=== PATIENT | female | born 1995 | race Caucasian/White ===

== ENCOUNTER 2023-08-09 08:59 | Outpatient (AMB) | payer OTHER, SELFPAY ==
--- NOTE | 2023-08-09 09:02 | MHC.OFFVIS ---
Intake Vital Signs 08/09/23 09:04 Height 5 ft 0.5 in Weight 99 lb 3.328 oz BMI 19.1 BP 131/76 Blood Pressure Location Lt brachial Position Sitting Pulse 74 Intake Visit Reasons: Gallbladder problems Intake Note: Chandrika presents in the office as a new patient. CC: She states that she used to have an upset stomach after greasy foods but now it is more frequent and anything will upset her stomach. She will have diarrhea 30 minutes after eating. Pains in the bottom part of her stomach. It feels like gas pains and will get worse. She states she does get acid reflux and when she was younger she had it alot. Denies any blood in her stool. Allergies blueberry Allergy (Mild, Verified 08/09/23 09:04) Unknown HPI HPI Comments History of Present Illness Details This is a 28y.o F who is here for abd cramping and diarrhea. Reports sx started almost 3 years ago and initially were associated with abd cramping and diarrhea within 1-2 hours of eating vaishali fatty/greasy food. Back then sx were intermittent but now for the past one year has been noticing more frequent sx which now occur with any food and occur within an hour of eating. Has tried to eliminate some food groups such as fatty foods, seafood. Has never tried to eliminate dairy or gluten. Was also seen by [facility] medicine and was given cholacol supplement (bovine bile salts) which she took with fatty foods unsure if its really helped but continues on it once daily. Diarrhea occurs once a month but when it does occur she has loose BMs 2-3/day. Abd cramping improves with diarrhea. She also notes its also coincides with her menstrual cycle. Of note had an US Abd through PCP office that showed 0.3cm GB polyp in the fundus but no stones or sludge. Normal CBD 0.2cm. [facility] Social History (Updated 08/09/23 @ 09:06 by [employer]) Alcohol intake: current Alcohol intake frequency: holidays/special occasions only Use of substances other than those prescribed or required for medical reasons: No Review of Systems Const All systems reviewed & are unremarkable except as noted in HPI and below Physical Exam Vital Signs: Last Vital Signs Pulse 74 08/09/23 09:04 BP 131/76 08/09/23 09:04 BMI result Body Mass Index 19.1 Gen appear: NAD HEENT: nonicteric, no cervical lymphadenopathy Chest: CTA CVS: Regular S1/S2 Abd: soft, nontender, nondistended, bowel sounds + Ext: no peripheral edema Neuro: A/Ox3, noted to move all extremities spontaneously Psych: interacting appropriately Assessment & Plan Assessment & Plan (1) Gallbladder polyp: Code(s): K82.4 - Cholesterolosis of gallbladder (2) Diarrhea: Code(s): R19.7 - Diarrhea, unspecified (3) Abdominal pain: Code(s): R10.9 - Unspecified abdominal pain Plan 1. Discussed with the pt that symptoms appear to be likely food triggered vs related to menstrual period. Reviewed that having GI sx around menses is quite common and includes abd cramping, nausea and diarrhea. IBS typically assoc with more frequent sx than just once monthly. Similarly, biliary colic does not typically coincide wiht menstrual cycle either. Plan: - Encouraged to keep a sx diary to help identify triggers better - Labs ordered to w/up for other causes such celiac, hyperthyroidism, IBD - No further work up needed if these return normal 2. GB polyp Likely unrelated to her abd complaints given the size of the polyp and sx characteristics as above. Can surveil through PCP's office with US at 1, 3, 5 years and then stop if continues to be stable. Follow PRN unless actionable findings on above. Orders: Orders Complete Blood Count no Diff Today R10.9 - Unspecified abdominal pain TSH reflex Free T4 Today R10.9 - Unspecified abdominal pain Liver Panel Today R10.9 - Unspecified abdominal pain Transglutaminase IgA Today R10.9 - Unspecified abdominal pain Immunoglobulin A Today R10.9 - Unspecified abdominal pain C Reactive Protein Today R19.7 - Diarrhea, unspecified Calprotectin, Fecal Today R19.7 - Diarrhea, unspecified Coding Level of Care Code New Pt Level 4 (63502) Diagnoses Gallbladder polyp K82.4 Diarrhea R19.7 Abdominal pain R10.9
[2023-08-09 09:04] VITALS: BP 131/76; PULSE 74; BMI 19.1
== END 2023-08-09 09:48 | disposition home or self-care (01) ==
PROVIDERS: Visit Provider Internal Medicine
DX: K82.4 Cholesterolosis of gallbladder (principal); R19.7 Diarrhea, unspecified; R10.9 Unspecified abdominal pain
CPT/HCPCS: 99204

== ENCOUNTER → 2023-08-09 08:59 | Outpatient (BNVA) | payer OTHER, SELFPAY | PROVIDERS: Visit Provider Internal Medicine ==

== ENCOUNTER 2023-08-09 10:21 | Outpatient (REF) | payer OTHER, SELFPAY ==
[2023-08-11 10:58] LABS: Immunoglobulin A 204 mg/dL (47-310)
[2023-08-11 13:09] LABS: Transglutaminase IgA <1.0 U/mL
[2023-08-17 03:59] LABS: Calprotectin, Fecal 33 mcg/g
== END 2023-08-09 10:22 | disposition home or self-care (01) ==
LOC: HO.WFDLDS 10:21
PROVIDERS: Visit Provider Internal Medicine
DX: R19.7 Diarrhea, unspecified (principal); R10.9 Unspecified abdominal pain
CPT/HCPCS: 36415; 80076; 82784; 83993; 84443; 85027; 86140; 86364

== ENCOUNTER 2024-06-17 13:43 | Outpatient (AMB) | payer OTHER, SELFPAY ==
[2024-06-17 13:47] VITALS: BP 119/68; PULSE 68; BMI 19.4
--- NOTE | 2024-06-17 13:47 | A.OFFVIS_ITS ---
Vital Signs 06/17/24 13:47 Height 5 ft Weight 99 lb 3.328 oz BMI 19.4 BP 119/68 Blood Pressure Location Lt brachial Position Sitting Pulse 68 Intake Visit Reasons: Diarrhea/ abd pain Intake Note: Chandrika presents in the office as a follow up for abdominal pains and diarrhea. CC: She is having a follow up she states that there is nothing new and everything seems better. 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 Reports sx started almost 3 years ago and initially were associated with abd cramping and diarrhea within 1-2 hours of eating vaishali fatty/greasy food. Back then sx were intermittent but now for the past one year has been noticing more frequent sx which now occur with any food and occur within an hour of eating. Has tried to eliminate some food groups such as fatty foods, seafood. Has never tried to eliminate dairy or gluten. Was also seen by [facility] medicine and was given cholacol supplement (bovine bile salts) which she took with fatty foods unsure if its really helped but continues on it once daily. Diarrhea occurs once a month but when it does occur she has loose BMs 2-3/day. Abd cramping improves with diarrhea. She also notes its also coincides with her menstrual cycle. Of note had an US Abd through PCP office that showed 0.3cm GB polyp in the fundus but no stones or sludge. Normal CBD 0.2cm. 06/17/24: Here to follow up as wasnt sure if needed a repeat US. Otherwise doing well from GI standpoint. Seeing a underground bolting machine operator whos made recommendations re dietary discretion. Has also been prescribed pancreatic enzymes (digest gold). [facility] Social History Alcohol intake: current Alcohol intake frequency: holidays/special occasions only Review of Systems Const All systems reviewed & are unremarkable except as noted in HPI and below Physical Exam Vital Signs: Last Vital Signs Pulse 68 06/17/24 13:47 BP 119/68 06/17/24 13:47 BMI result Body Mass Index 19.4 No apparent distress Nonicteric Abdomen soft, nondistended Alert and oriented x3, normal gait Assessment & Plan Assessment & Plan (1) Gallbladder polyp: Code(s): K82.4 - Cholesterolosis of gallbladder Category: Medical Plan Will cont surveillance with US at 1, 3, 5 years and then stop if continues to be stable. US ABd ordered. Orders: Orders US abdomen limited Today K82.4 - Cholesterolosis of gallbladder Coding Level of Care Code Est Pt Level 3 (13859) Diagnoses Gallbladder polyp K82.4
== END 2024-06-17 14:43 | disposition home or self-care (01) ==
PROVIDERS: PCP Internal Medicine; Visit Provider Internal Medicine
DX: K82.4 Cholesterolosis of gallbladder (principal)
CPT/HCPCS: 99213

== ENCOUNTER → 2024-06-17 13:43 | Outpatient (BNVA) | payer OTHER, SELFPAY | PROVIDERS: Visit Provider Internal Medicine ==

== ENCOUNTER 2024-07-02 08:32 | Outpatient (REF) | payer OTHER, SELFPAY ==
--- NOTE | ~2024-07-02 | US_ITS ---
EXAMINATION: US ABDOMEN LIMITED CLINICAL INFORMATION: Cholesterolosis of the gallbladder. COMPARISON: None available. TECHNIQUE: Real-time imaging of the right upper quadrant abdominal viscera. FINDINGS: PANCREAS: Normal. LIVER: Normal. The liver is normal in size. The liver contour is normal. Parenchymal echogenicity is normal. No focal hepatic lesion. There is no intrahepatic biliary duct dilatation seen. GALLBLADDER: There are 2 polypoid observations in the gallbladder wall measuring 0.2 and 0.3 cm. No significant gallbladder wall thickening. No pericholecystic free fluid. COMMON BILE DUCT: Normal in caliber measuring 0.2 cm in diameter. RIGHT KIDNEY: Normal. No hydronephrosis. No renal calculi or focal parenchymal lesions. The kidney measures cm in maximum dimension. FREE FLUID: None. US/US abdomen limited IMPRESSION: Up to 0.3 cm polypoid observations in the gallbladder wall could represent adherent stones versus true polyps. Recommend follow-up with ultrasound in 6-12 months. Electronically signed by: Willow Farley MD 07/09/2024 12:09 PM EDT
== END 2024-07-02 08:33 | disposition home or self-care (01) ==
LOC: HO.US 08:32
PROVIDERS: PCP Internal Medicine; Visit Provider Internal Medicine
DX: K82.4 Cholesterolosis of gallbladder (principal)
CPT/HCPCS: 76705

== ENCOUNTER 2025-09-17 07:59 | Outpatient (REF) | payer OTHER, SELFPAY ==
--- NOTE | ~2025-09-17 | US_ITS ---
CLINICAL HISTORY: K82.4 - Cholesterolosis of gallbladder US abdomen complete Comparison: US/[place]/SR - US ABDOMEN LIMITED - 07/02/24 08:41 EDT Findings: The pancreas is normal. The visualized aorta and inferior vena cava are normal caliber. The liver is normal in size, right lobe length is 14.1 cm. Normal in echogenicity, no discrete lesion is visualized in the imaged liver. No intrahepatic bile duct dilatation. The common duct is 3 mm in diameter. 5 x 4 x 3 mm versus previous 3 x 3 x 2 mm gallbladder polyp, the gallbladder is otherwise normal. Negative sonographic Ortega sign. The main portal vein is patent with antegrade flow. The right kidney is normal, 10.0 cm in length. The left kidney is normal, 10.3 cm in length. The spleen is normal, 9.0 cm in length. No free fluid in the abdomen. Impression: 5 mm gallbladder polyp, enlarged. This document has been electronically signed by: Mary Downey MD on 09/17/2025 15:47:25
== END 2025-09-17 08:00 | disposition home or self-care (01) ==
LOC: HO.US 07:59
PROVIDERS: PCP Internal Medicine; Visit Provider Internal Medicine
DX: K82.4 Cholesterolosis of gallbladder (principal)
CPT/HCPCS: 76700

== ENCOUNTER → 2025-09-17 08:04 | Outpatient (BNV) | payer OTHER, SELFPAY | PROVIDERS: PCP Internal Medicine; Visit Provider Radiology Diagnostic Radiology | DX: K82.4 Cholesterolosis of gallbladder (principal); K82.8 Other specified diseases of gallbladder | CPT/HCPCS: 76700 ==